=== PATIENT | female | born 2000 | race Caucasian/White ===

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

== ENCOUNTER 2020-01-02 13:55 | Emergency (ER) | payer OTHER ==
[~2020-01-02] VITALS: Ht 157.5 cm; Wt 62.1 kg
[2020-01-02 14:03] VITALS: Ht 157.5 cm; Wt 62.1 kg
[2020-01-02 14:48] VITALS: BP 127/80
== END 2020-01-02 14:48 | disposition home or self-care (01) ==
LOC: ED 13:55
DX: L25.8 Unspecified contact dermatitis due to other agents (principal)
CPT/HCPCS: J7512; Q0163

== ENCOUNTER 2020-03-13 07:07 | Emergency (ER) | payer OTHER, SELFPAY ==
[~2020-03-13] VITALS: Ht 160 cm; Wt 49.9 kg
[2020-03-13 07:20] VITALS: Ht 160 cm; Wt 49.9 kg
[2020-03-13 08:29] VITALS: BP 125/79
== END 2020-03-13 08:29 | disposition home or self-care (01) ==
LOC: ED 07:07
DX: R50.9 Fever, unspecified (principal); R05 Cough; R06.02 Shortness of breath; Z20.828 Contact with and (suspected) exposure to other viral communicable diseases
CPT/HCPCS: U0003-CS

== ENCOUNTER 2020-09-03 20:51 | Emergency (ER) | payer OTHER, SELFPAY ==
[~2020-09-03] VITALS: Ht 157.5 cm; Wt 60.3 kg
[2020-09-03 20:52] VITALS: Ht 157.5 cm; Wt 60.3 kg
[2020-09-03 22:16] VITALS: BP 129/88
== END 2020-09-03 22:16 | disposition home or self-care (01) ==
LOC: ED 20:51
DX: U07.1 COVID-19 (principal)
CPT/HCPCS: U0003